=== PATIENT | male | born 1945 | race Caucasian/White ===

== ENCOUNTER 2023-11-05 11:10 | Outpatient (RCR) | payer MEDICARE, SELFPAY | END 2023-11-05 23:59 | disposition home or self-care (01) | LOC: RPT 11:10 | PROVIDERS: ATTENDING PHYSICIAN Family Medicine Geriatric Medicine; FAMILY PHYSICIAN Family Medicine | DX: R15.2 Fecal urgency (principal); C61 Malignant neoplasm of prostate; M62.81 Muscle weakness (generalized); Z73.6 Limitation of activities due to disability | CPT/HCPCS: 97162; 97530 ==

== ENCOUNTER 2023-11-20 09:48 | Outpatient (RCR) | payer MEDICARE, SELFPAY | END 2023-11-20 23:59 | disposition home or self-care (01) | LOC: RPT 09:48 | PROVIDERS: ATTENDING PHYSICIAN Family Medicine Geriatric Medicine; FAMILY PHYSICIAN Family Medicine | DX: R15.2 Fecal urgency (principal); C61 Malignant neoplasm of prostate; M62.81 Muscle weakness (generalized); Z73.6 Limitation of activities due to disability | CPT/HCPCS: 97110; 97112; 97530 ==